=== PATIENT | female | born 1960 | race Caucasian/White ===

== ENCOUNTER 2017-08-07 06:31 | Day surgery (SDC) | payer MEDICAID ==
[2017-08-06 15:53] LABS: EOSINOPHILS # (AUTO) 0.1 K/uL (0-0.4); EOSINOPHILS % (AUTO) 2.8 % (0.0-4.0); HEMATOCRIT 37.9 % (36-48); HEMOGLOBIN 12.5 g/dL (12.0-16.0); LYMPHOCYTES # (AUTO) 1.6 K/uL (2.5-16.5); MEAN CORPUSCULAR HEMOGLOBIN 29 pg (27-31); MEAN CORPUSCULAR HGB CONC 33 g/dL (33-37); MEAN CORPUSCULAR VOLUME 86.9 fL (80-94); MONOCYTES # (AUTO) 0.3 K/uL (0.8-1.0); MONOCYTES % (AUTO) 7.2 % (1.7-9.3); NEUTROPHILS # (AUTO) 2.7 K/uL (1.8-7.7); PLATELET COUNT (AUTO) 217 K/uL (140-450); RED BLOOD CELL COUNT(AUTO) 4.36 MIL/uL (4.20-5.40); RED CELL DISTRIBUTION WIDTH 13.2 % (11.6-13.7); WHITE BLOOD COUNT (AUTO) 4.8 K/uL (4.8-10.8)
[2017-08-06 16:12] LABS: ALBUMIN 3.7 g/dL (3.4-5.0); CARBON DIOXIDE 29.5 mmol/L (21-32); CREATININE 0.7 mg/dL (0.6-1.3); POTASSIUM 3.5 mmol/L (3.5-5.1); TOTAL BILIRUBIN 0.3 mg/dL (0.0-1.0)
[~2017-08-07] VITALS: Ht 154.9 cm; Wt 60.8 kg
[2017-08-07] MEDS ORDERED: BUPIVACAINE-MPF 0.25% 30 ML VIAL INJ ONE (07:13)
[2017-08-07] MEDS ORDERED: LIDOCAINE/EPI 1% 1:100000 20 ML VIAL INJ ONE (07:14)
[2017-08-07] MEDS ORDERED: LIDOCAINE/EPI 2% 1:100000 20 ML VIAL INJ ONE (07:17)
[2017-08-07] MEDS ORDERED: CLINDAMYCIN 600 MG in DEXTROSE 5% 50 ML IV SCH (07:46)
[2017-08-07] MEDS ORDERED: MIDAZOLAM 2 MG/2 ML VIAL ONE (09:33)
[2017-08-07] MEDS ORDERED: fentaNYL 0.05 MG/ML VIAL ONE (09:33)
[2017-08-07] MEDS ORDERED: MORPHINE SULFATE 4 MG/ML SYR IV PRN (10:40)
[2017-08-07] MEDS ORDERED: HYDROmorphone 1 MG/ML AMP IVP PRN (10:40)
[2017-08-07] MEDS ORDERED: HYDROcodone/APAP 5/325 MG 1 TAB TAB PO PRN (10:40)
[2017-08-07] MEDS ORDERED: ONDANSETRON 4 MG/2 ML VIAL IV PRN (10:40)
[2017-08-07] MEDS ORDERED: MORPHINE SULFATE 2 MG/ML SYR IVP PRN (10:40)
== END 2017-08-07 12:40 | disposition home or self-care (01) ==
LOC: MDS 06:31 → MMU 06:32 → MDS 12:40
PROVIDERS: ATTEND Surgery
DX: C50.911 Malignant neoplasm of unspecified site of right female breast (principal); M19.90 Unspecified osteoarthritis, unspecified site
CPT/HCPCS: 36415; 36561; 71045; 76001; 80053; 85025; 86886; 86900; 86901; 93005; J1644; J2001; J2250; J3010; J3490; J7060; J7120; Q0092; C1751; J7030

== ENCOUNTER 2017-08-07 16:12 | Emergency (ER) | payer MEDICAID ==
[~2017-08-07] VITALS: Ht 154.9 cm; Wt 64.9 kg
[2017-08-07 16:29] VITALS: BP 114/61
--- NOTE | 2017-08-07 16:45 | NUR ---
PT COMES TO ED C/O SUDDEN ONSET NAUSEA, DIZZINESS, BLURRED VISION WHILE SITTING IN HER CAR WAITING FOR HER RX TO BE FILLED. PT HAD A PORT A CATH PLACED TODAY AT [facility] -- DRESSING IS CDI. PT IS AXO X4, PLACED ON ALL MONIOTRS, VS WNL. PT DENIES ANY PAIN. PENDING MD PINEDA.
--- NOTE | 2017-08-07 16:55 | NUR ---
DR HER AT BEDSIDE TO EVAL
--- NOTE | 2017-08-07 17:05 | NUR ---
DIETARY CALLED FOR REGULAR DIET TRAY PER MD VERBAL ORDER. PT ALSO GIVEN CRACKERS AND JUICE PER MD VERBAL ORDER
--- NOTE | 2017-08-07 17:40 | NUR ---
PT SITTING UP IN BED, EATING FROM DIET TRAY, SMILING AND TALKING IN FULL SENTENCES. PENDING LABS
--- NOTE | 2017-08-07 18:04 | NUR ---
PT ATE 100% OF MEAL TRAY. RESTING IN BED RELAXED, ON ALL MONIOTRS. STATES "I FEEL MUCH BETTER."
[2017-08-07 18:12] VITALS: BP 116/76
--- NOTE | 2017-08-07 18:13 | NUR ---
Patient discharged with v/s stable. Written and verbal after care instructions given and explained. Patient verbalized understanding. Ambulatory with steady gait. All questions addressed prior to discharge. Advised to follow up with PMD.
== END 2017-08-07 18:13 | disposition home or self-care (01) ==
LOC: MED 16:12
DX: E86.0 Dehydration (principal); R55 Syncope and collapse; Z88.1 Allergy status to other antibiotic agents; Z85.3 Personal history of malignant neoplasm of breast
CPT/HCPCS: 82948; 93005; 99283